=== PATIENT | female | born 1980 | race Hispanic/Latino ===

== ENCOUNTER 2018-07-10 08:48 | Outpatient (CLI) | payer BC ==
--- NOTE | 2018-07-10 10:45 | Fluoroscopy Report ---
UPPER GI WITH AIR-CONTRAST History: Gastroesophageal reflux disease. History of gastric sleeve surgery. Comparison: None at this facility. FINDINGS: [employer] film of the abdomen demonstrates a normal bowel gas pattern. 42 fluoroscopic images were captured during this exam. Deglutition is normal. No evidence for esophageal abnormality or mucosal defect. No aspiration. A small sliding hiatal hernia was witnessed throughout this exam. Occasional episodes of gastroesophageal reflux to the mid/proximal esophagus were noted. Gastric sleeve surgical changes are suspected in the stomach. The gastric cavity is within normal limits. No evidence for mucosal defect, ulceration or obstruction. The duodenal bulb and duodenal sweep are normal caliber and mucosal pattern. An approximate 1 cm duodenal diverticulum is noted along the medial surface of the descending duodenum. IMPRESSION: Small sliding hiatal hernia with occasional episodes of gastroesophageal reflux as described. Gastric sleeve surgical changes appear intact and without abnormality. Small duodenal diverticulum.
== END 2018-07-10 08:49 | disposition home or self-care (01) ==
LOC: FLUORO 08:48
PROVIDERS: ATTEND Specialist
DX: K21.9 Gastro-esophageal reflux disease without esophagitis (principal); K44.9 Diaphragmatic hernia without obstruction or gangrene; Z98.890 Other specified postprocedural states; K57.10 Diverticulosis of small intestine without perforation or abscess without bleeding
CPT/HCPCS: 74247